=== PATIENT | male | born 1950 | race Caucasian/White ===

== ENCOUNTER 2021-09-09 08:35 | Day surgery (SDC) | payer MEDICARE, OTHER ==
[~2021-09-09] VITALS: Ht 180.3 cm; Wt 78.6 kg
[2021-09-09] MEDS ORDERED: TADA10TA (09:02)
[2021-09-09] MEDS ORDERED: TRAZ50 PO (09:02)
[2021-09-09] MEDS ORDERED: Crestor20 MG PO (09:03)
[2021-09-09] MEDS ORDERED: METO50ER PO (09:04)
[2021-09-09] MEDS ORDERED: TRAM50 (09:04)
[2021-09-09] MEDS ORDERED: ASPIR 8181 M1 PO (09:05)
[2021-09-09] MEDS ORDERED: VITAMIN D362.5 MCG (09:05)
[2021-09-09] MEDS ORDERED: C COMPLEX1000 M1 PO (09:06)
[2021-09-09] MEDS ORDERED: ZINC15 PO (09:06)
--- NOTE | 2021-09-09 09:20 | NUR ---
09/09/21 0920 Supriya Ponce AT 0905 PLEDGET AT 0907
== END 2021-09-09 10:32 | disposition home or self-care (01) ==
LOC: ORSCSDS 08:35
PROVIDERS: Ophthalmology
PROC: 08RK3JZ Replacement of Left Lens with Synthetic Substitute, Percutaneous Approach (ICD-10-PCS; principal; 2021-09-09 10:00)
DX: H25.13 Age-related nuclear cataract, bilateral (principal); I25.10 Atherosclerotic heart disease of native coronary artery without angina pectoris; J44.9 Chronic obstructive pulmonary disease, unspecified; F43.10 Post-traumatic stress disorder, unspecified; I21.9 Acute myocardial infarction, unspecified; E78.00 Pure hypercholesterolemia, unspecified; I10 Essential (primary) hypertension; F17.210 Nicotine dependence, cigarettes, uncomplicated; Z79.899 Other long term (current) drug therapy
CPT/HCPCS: J2001; J2250; J3010; J3301; J7040; V2632

== ENCOUNTER 2021-09-16 09:59 | Day surgery (SDC) | payer MEDICARE, OTHER ==
[~2021-09-16] VITALS: Ht 180.3 cm; Wt 79.2 kg
[~2021-09-16 09:59] MED LIST: ASPIR 8181 M1 PO; C COMPLEX1000 M1 PO; Crestor20 MG PO; METO50ER PO; TADA10TA; TRAM50; TRAZ50 PO; VITAMIN D362.5 MCG; ZINC15 PO
--- NOTE | 2021-09-16 10:47 | NUR ---
09/16/21 Rosangela7 Emil Wright CALL LIGHT WITHIN REACH. TETRACAINE AT 1041 PLEDGETT AT 1042
== END 2021-09-16 12:25 | disposition home or self-care (01) ==
LOC: ORSCSDS 09:59
PROVIDERS: Ophthalmology
PROC: 08RJ3JZ Replacement of Right Lens with Synthetic Substitute, Percutaneous Approach (ICD-10-PCS; principal; 2021-09-16 11:30)
DX: H25.11 Age-related nuclear cataract, right eye (principal); F17.210 Nicotine dependence, cigarettes, uncomplicated; I10 Essential (primary) hypertension; E78.00 Pure hypercholesterolemia, unspecified; I25.2 Old myocardial infarction; Z79.899 Other long term (current) drug therapy
CPT/HCPCS: J2001; J2250; J3010; J3301; J7040; V2632